=== PATIENT | male | born 1965 | race Caucasian/White ===

== ENCOUNTER 2017-04-05 11:09 | Observation (INO) ==
[2017-04-05] MEDS ORDERED: NS 1,000 ML IV ONE (11:24)
[2017-04-05] MEDS ORDERED: ATIVAN IV ONE (11:35)
[2017-04-05 11:49] LABS: BASO% 0.2 % (0.0-0.8); HEMATOCRIT 40.8 % (42.0-52.0); HEMOGLOBIN 13.9 g/dL (14.0-18.0); IMM GRAN# 0.02 X1000 (0.0-0.04); IMM GRAN% 0.2 % (0.0-0.5); LYMPH# 1.48 X1000 (1.2-3.4); LYMPH% 16.8 % (20.5-51.1); MANUAL DIFF NEEDED? NO; MCH 29.4 PG (27-31); MCHC 34.1 g/dL (33-37); MCV 86.3 FL (81-99); MONO# 0.74 X1000 (0.11-0.59); MONO% 8.4 % (1.7-9.3); MPV 11.9 FL (7.4-10.4); NEUT% 74.4 % (42.2-75.2); PLT 235 X1000 (130-400); RBC 4.73 XMIL (4.7-6.1)
[2017-04-05 11:59] LABS: ALBUMIN 3.6 g/dL (3.5-5.0); ALKALINE PHOSPHATASE 85 U/L (32-122); BUN 11 mg/dL (8-22); CALCIUM 9.5 mg/dL (8.8-10.2); CK PROFILE 44 U/L (24-204); GOT 30 U/L (10-34); GPT 26 U/L (10-44); MAGNESIUM 1.7 mg/dL (1.5-2.7); TCO2 25 mmol/L (25-35); TOTAL BILIRUBIN 0.75 mg/dL (0.20-1.00); TOTAL PROTEIN 7.2 g/dL (6.3-8.3)
[2017-04-05 12:04] LABS: CHLORIDE 92 mmol/L (98-107); POTASSIUM 3.7 mmol/L (3.5-5.1); SODIUM 132 mmol/L (136-145)
[2017-04-05 12:17] LABS: AGAP 15; COSMO 264; FREE T4 7.54 ng/dL (0.93-1.70)
--- NOTE | 2017-04-05 13:39 | PROVIDER DOCUMENTATION ---
This chart was entered by Abisai Michelle Scribe, acting as scribe for Lindsay Vasques MD. HPI-General Adult - General Chief Complaint: Weakness Stated Complaint: weakness Time Seen by Provider: 04/05/17 11:24 Source: patient Allergies/Adverse Reactions: Patient Allergies Allergy/AdvReac Type Severity Reaction Status Date / Time latex Allergy ITCHING Verified 04/05/17 11:37 Home Medications: Home Medication List Medication Instructions Recorded Confirmed Last Taken Type Baclofen 10 mg PO DAILY PRN PRN 03/24/17 04/05/17 04/01/17 History Tramadol HCl 50 mg PO PRN PRN 03/24/17 04/05/17 04/01/17 History Levothyroxine [Synthroid] 100 microgm PO DAILY 04/05/17 04/05/17 04/05/17 08:00 History Metoprolol Succinate E.r. [Toprol 25 mg PO DAILY 04/05/17 04/05/17 04/05/17 08: 00 History Xl] - History of Present Illness -Gen Adult Nature of Presenting Problems: PT STATED "I WAS DRIVING TO MY MOM'S HOUSE AND STARTED TREMBLING AND FEELING PANICKY"PT RECENTLY HAD THYROID SURGERY WITHOUT COMPLICATIONS. Location of Pain/Injury: reports: none Pain Radiation: reports: no radiation Quality of Pain: reports: none Severity: reports: mild Onset/Duration: reports: just prior to arrival Timing: reports: still present Context/Activities at Onset: reports: none Modifying Factors: improves with: nothing Associated Symptoms: reports: anxiety. denies: fever/chills, shortness of breath, vomiting Similar Symptoms Previously?: No Recently seen or treated by another doctor?: No Review of Systems - Adult - REVIEW OF SYSTEMS - ADULT Constitutional: denies: chills, fever, night sweats Ears, Nose, Mouth & Throat: denies: nose pain, throat pain, throat swelling Cardiovascular: denies: chest pain, irregular heart rate, palpitations Respiratory: denies: cough, shortness of breath, wheezing Gastrointestinal: denies: abdominal pain, diarrhea, nausea, vomiting Psychiatric: reports: anxiety, panic attacks. denies: anti-depressant use, suicidal thoughts All Other Systems: Reviewed and Negative Past History - Adult - PAST MEDICAL HISTORY-ADULT Review of Records: reports: Nursing Assessment Review, Medications Reviewed Cardiovascular: reports: HTN - PRIOR SURGERIES/PROCEDURES Surgical/Procedure History: reports: orthopedic (extremity) - IMMUNIZATION STATUS Childhood Immunizations: UTD - FAMILY HISTORY Family History: reviewed, not pertinent - SOCIAL HISTORY Smoking: denies Substance Use: none/never Alcohol Use Frequency: every day Number of drinks per typical drinking period:: 2 drinks Living Situation: family Physical Exam-General - PHYSICAL EXAM-ADULT Initial Vital Signs Reviewed: Yes - CONSTITUTIONAL General Appearance: appears well, alert, no apparent distress - EYES Eyes: PERRL/EOMI, pink conjunctivae - HEAD, EARS, NOSE, MOUTH & THROAT HENMT: normocephalic/atraumatic, moist mucous membranes, normal ENT inspection, TMs normal, pharynx normal - NECK Neck: non-tender, full range of motion, supple, other (HEALING SURGICAL SCAR) - RESPIRATORY Respiratory: chest non-tender, lungs clear, normal breath sounds, no pleuratic chest pain, no respiratory distress, no accessory muscle use - CARDIOVASCULAR Cardiovascular: normal peripheral pulses, regular rate, rhythm, no edema, no gallop, no JVD, no murmur - GASTROINTESTINAL (ABDOMEN) Abdominal Exam: normal bowel sounds, non tender, soft, no organomegaly, no pulsatile mass - MUSCULOSKELETAL Extremity: normal range of motion, normal inspection, normal capillary refill - SKIN Integumentary: normal color, normal turgor, warm/dry - PSYCHIATRIC Psych/Mental Status: normal mood/affect, normal thought content, normal thought process, oriented x 3 Progress - PLAN OF CARE/RESULTS Progress/Plan/Lab Results: Vital Signs - 8 hr 04/05/17 11:13 Temperature 98.5 F Pulse Rate 96 H Respiratory Rate 24 Blood Pressure 138/98 O2 Sat by Pulse Oximetry 95 Orders Category Date Time Status Cardiac Monitoring DIRECTED Care 04/05/17 11:24 Active Saline Loc NOW Care 04/05/17 11:24 Active CHEST-PORTABLE [RAD] Stat Exams 04/05/17 11:24 Taken CBC WITH ELECTRONIC DIFF [HEME] Stat Lab 04/05/17 10:00 Results CK PROFILE [SP CHEM] Stat Lab 04/05/17 10:00 Received COMPREHENSIVE METABOLIC PANEL [CHEM] Stat Lab 04/05/17 10:00 Received FREE T4 Stat Lab 04/05/17 10:00 Received MAGNESIUM [CHEM] Stat Lab 04/05/17 10:00 Received TROPONIN T Stat Lab 04/05/17 10:00 Received TSH Stat Lab 04/05/17 10:00 Received 0.9% Sodium Chloride Inj [Ns] 1,000 ml Med 04/05/17 11:24 Active IV 999 mls/hr Lorazepam [Ativan] Med 04/05/17 11:35 Discontinued 1 mg IV NOW ONE EKG [EKG] Stat Ther 04/05/17 11:24 Ordered Result Diagrams: 04/05/17 10:00 04/05/17 10:00 - CONSULTS/PCP/HOSPITALIST Notification Time Discussed: 13:35 Reason/Comments: Admit to Dr. Birch Consult Disposition: Admit Departure - Departure Time of Disposition Decision: 13:36 DIAGNOSIS: Hyperthyroidism, Anxiety, Tachycardia Post-operative complication Qualifiers: Surgical complication system/body Area: endocrine system Surgical complication type: unspecified Procedure type: endocrine system Qualified Code(s): E89.89 - Other postprocedural endocrine and metabolic complications and disorders Disposition: ADMITTED INPATIENT 09 Certified Medical Emergency: Emergent Condition: Stable Referrals and Follow-Ups: Neo Joshi [Primary Care Provider] - - Critical Care Note This patient required my direct & personal management of CC.: No This chart was documented by the indicated scribe, (Abisai Michelle Scribe) and accurately reflects the services I performed and decisions made by me, Lindsay Vasques MD, as attested by the provider's signature.
[2017-04-05] MEDS ORDERED: LIBRIUM PO SCH (13:45)
[2017-04-05] MEDS: ZOSYN 3.375 GM/NS 3.375 GM/50 ML IVPB IV SCH ×2 (14:27→21:28)
[2017-04-05] MEDS ORDERED: ZOFRAN IV PRN (14:40)
--- NOTE | 2017-04-05 14:41 | HISTORY AND PHYSICAL ---
PRIMARY CARE PHYSICIAN: . CHIEF COMPLAINT: Chills and suspected fever. HISTORY OF PRESENT ILLNESS: This is a 51-year-old male with past medical history of hypertension and recent thyroidectomy who presented to the emergency department complaining of feeling general malaise and reported that since last night he was having profuse sweating, general malaise and this morning also was feeling very tired. He did not check temperature. He denies any pain localized in the neck in the surgical area. As we mentioned before, patient had a thyroidectomy [address] Gonzales because of a thyroid nodule and goiter. Since then, he was feeling fine until yesterday. He denies any cough or flu-like symptoms. He denies any abdominal pain. He denies any diarrhea. He denies any burning upon urination. Patient upon ER evaluation, was found to have normal laboratory data except elevated thyroid hormones. Patient was given levothyroxine after the surgery. The patient is going to be admitted for further evaluation and treatment. PAST MEDICAL HISTORY: Hypertension. PAST SURGICAL HISTORY: Recent thyroid lobectomy in 1 week ago. SOCIAL HISTORY: Patient reports drinking alcohol socially, not ever single day. Reports smoking tobacco since at least his early 20s, 1 pack per day. Denies using any illicit drugs. REVIEW OF SYSTEMS: Eleven systems were reviewed and no symptoms except related to HPI. PHYSICAL EXAMINATION: VITAL SIGNS: Temperature 98.5 degrees, heart rate 96, respiratory rate 24, blood pressure 138/98 O2 saturation 95% on room air. GENERAL: This is a 51-year-old male, lying in bed, in no acute distress. HEENT: Head is normocephalic, atraumatic. Anicteric sclerae and pale conjunctivae. Mucous membranes moist. NECK: Small incision on the central trachea. Does not feel any fluctuance there. Very mildly tender. Neck supple. No JVD noted. No carotid bruits. CARDIOVASCULAR: S1, S2 heard. No murmurs, gallops, or rubs. Regular rate and rhythm. RESPIRATORY: Clear bilaterally to auscultation. No work of breathing or using accessory muscles. ABDOMEN: Soft, nontender to palpation. Bowel sounds present. No organomegaly. EXTREMITIES: No clubbing, cyanosis, or edema. Peripheral pulses present in both legs. NEUROLOGICAL: Patient alert and oriented x3. Able to move 4 extremities. Cranial nerves II through XII grossly normal. LABORATORY DATA: CBC unremarkable. BMP as well with mild hyponatremia 132 and free T4 7.54 with TSH 0.01. ASSESSMENT: 1. General malaise. 2. Hyperthyroidism. 3. Suspected surgical wound infected. PLAN: The patient is being admitted to hospital for further evaluation and treatment. It looks like he is having an infection but do not know exactly where it is coming from. At this point, we are going to do a CT of the chest, abdomen, and pelvis to see if there is any source of infection ruled out. We will also check a CT of the neck for suspected infection in the surgical wound although on the physical exam there did not seem to be any fluctuance. Will put this patient on Zosyn IV just in case there is an infection we are missing. We are going to stop of course levothyroxine because of low TSH. We will continue with the beta-blockers. Further recommendations to follow according to the clinical situation. cc: Nolberto Osei MD
[2017-04-05] MEDS: ATIVAN IV PRN ×2 (15:41→21:29)
[2017-04-05] MEDS: NS 1,000 ML IV SCH (15:42)
[2017-04-05] MEDS: LOVENOX SUBQ SCH (15:42)
[2017-04-05] MEDS: LIORESAL PO SCH (16:36)
--- NOTE | 2017-04-05 17:15 | Diag Imaging Result Document ---
PROCEDURE NAME: NECK W/CONTRAST - 04/05/2017 CT OF THE NECK WITH CONTRAST: FINDINGS: Exam performed with intravenous contrast. A dose reduction protocol was used. No comparison CT neck is available. There are postsurgical changes of partial right thyroidectomy which, by history, is recent. There are streak artifacts from the clavicles which limit detail at the anterior thyroid region. There is apparent superficial and deep subcutaneous edema anterior to the thyroid, most prominent on the right. There are a couple of tiny gas bubbles within the edema in the deep subcutaneous tissues medially on the right, approximately 1.5 cm anterior to the anterior medial margin of the remaining right thyroid lobe. The possibility of ill-defined abscess in this area cannot be excluded. There are multiple small bilateral cervical lymph nodes. There are no necrotic appearing lymph nodes identified. There is no substantial narrowing of the airway identified. IMPRESSION: 1. Postsurgical changes of partial right thyroidectomy. 2. Streak artifacts from the bilateral clavicles which limit detail at the anterior thyroid region. 3. Superficial and deep subcutaneous edema anterior to the thyroid, most prominent on the right. A couple of apparent tiny gas bubbles within the deep subcutaneous edema medially on the right. The possibility of early abscess formation in this location cannot be excluded.
--- NOTE | 2017-04-05 17:37 | Diag Imaging Result Document ---
PROCEDURE NAME: CHEST-PORTABLE - 04/05/2017 PORTABLE CHEST: COMPARISON: 03/24/2017. FINDINGS: Heart size appears within normal limits. There are apparent COPD changes with prominence of central markings, similar to the previous exam. There is no dense consolidation, pleural effusion, or pneumothorax identified. IMPRESSION: COPD. No acute changes.
--- NOTE | 2017-04-05 20:59 | Diag Imaging Result Document ---
PROCEDURE NAME: THORAX/ABDOMEN/PELVIS - 04/05/2017 CT THORAX ABDOMEN PELVIS WITH CONTRAST: FINDINGS: Exam performed with intravenous contrast. A dose reduction protocol was used. No comparison exam. Heart size appears upper normal. There are mild COPD changes. The lungs appear essentially clear except for atelectasis at the posterior right base. There is a tiny right pleural effusion. There is no consolidation or pneumothorax identified. There are mildly prominent mediastinal lymph nodes. There is no other evidence of mediastinal inflammation. There is no mediastinal abscess seen. There are no substantial abnormalities of the liver, spleen, adrenal glands, or pancreas identified. There are no calcified gallstones or pericholecystic inflammation identified. There is a 1.7 cm low-density lesion suggestive of cyst at the lateral mid to lower right kidney. The bilateral kidneys otherwise enhance homogeneously. There is no hydronephrosis. There are nonspecific small retroperitoneal lymph nodes. There are no substantially enlarged retroperitoneal or mesenteric lymph nodes identified. There are bilateral L5 pars interarticularis defects noted. There are lumbar spine degenerative changes also noted. There is no evidence of bowel obstruction. There is a small fat-containing periumbilical hernia, but there is no bowel-containing hernia seen. The appendix is unremarkable. There is no substantial bowel wall thickening identified. There is no free air, free fluid , or abscess identified in the abdomen or pelvis. IMPRESSION: 1. Mild COPD changes. Mild atelectasis at posterior right lung base. Tiny right pleural effusion. 2. Mild mediastinal adenopathy. No other evidence of mediastinal inflammation. 3. Apparent small right renal cyst. Nonspecific small retroperitoneal lymph nodes. 4. Small fat-containing paraumbilical hernia. No bowel-containing hernia. No bowel obstruction. 5. No abscess. No free air. 6. Bilateral L5 pars interarticularis defects and lumbar spine degenerative changes noted. [facility]
[2017-04-06] MEDS: ZOSYN 3.375 GM/NS 3.375 GM/50 ML IVPB IV SCH ×4 (01:57→20:38)
[2017-04-06] MEDS: NS 1,000 ML IV SCH ×2 (01:57→14:56)
[2017-04-06] MEDS: ATIVAN IV PRN ×3 (01:58→19:30)
[2017-04-06 07:00] LABS: MANUAL DIFF NEEDED? NO
[2017-04-06 07:13] LABS: BASO% 0.1 % (0.0-0.8); HEMATOCRIT 35.3 % (42.0-52.0); LYMPH# 1.69 X1000 (1.2-3.4); LYMPH% 23.5 % (20.5-51.1); MCH 29.3 PG (27-31); MCV 86.3 FL (81-99); MONO# 0.54 X1000 (0.11-0.59); MONO% 7.5 % (1.7-9.3); MPV 11.8 FL (7.4-10.4); NEUT% 68.9 % (42.2-75.2); PLT 180 X1000 (130-400); RBC 4.09 XMIL (4.7-6.1)
[2017-04-06 07:25] LABS: AGAP 10; BUN 7 mg/dL (8-22); CALCIUM 8.5 mg/dL (8.8-10.2); CHLORIDE 104 mmol/L (98-107); COSMO 276; POTASSIUM 3.7 mmol/L (3.5-5.1); SODIUM 139 mmol/L (136-145); TCO2 25 mmol/L (25-35)
--- NOTE | 2017-04-06 07:55 | EKG Report ---
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 Rate : 092 BPM Atrial Rate : 092 BPM P-R Int : 116 ms QRS Dur : 092 ms QT Int : 368 ms P-R-T Axes : 020 062 057 degrees QTc Int : 455 ms Normal sinus rhythm. Normal ECG When compared with ECG of 05-APR-2017 11:17, (Unconfirmed) No significant change was found Confirmed by Harjinder Eid MD ([id number]) on 04/06/2017 4:03:12 PM
--- NOTE | 2017-04-06 10:30 | Diag Imaging Result Document ---
PROCEDURE NAME: US ABDOMEN-COMPLETE - 04/06/2017 ULTRASOUND ABDOMEN, COMPLETE: COMPARISON: CT from 04/05/2017. FINDINGS: The patient is not n.p.o. The liver, gallbladder, spleen, pancreas, and both kidneys are normal. The common bile duct measures 4 mm. Aorta, IVC, and main portal vein are patent. The gallbladder is partially collapsed. IMPRESSION: No obvious abnormality.
[2017-04-06] MEDS: PRILOSEC PO SCH (11:02)
[2017-04-06] MEDS: TOPROL XL PO SCH (11:02)
[2017-04-06] MEDS: LIORESAL PO SCH ×3 (11:02→18:52)
--- NOTE | 2017-04-06 14:21 | PROGRESS NOTE ---
DATE: 04/06/2017 SUBJECTIVE: Patient reports feeling a little bit better. No fever or chills reported. OBJECTIVE: Vital Signs: Temperature 98.9 degrees, heart rate 87, respiratory 19, blood pressure 145/89, O2 saturation 96% on room air. General Examination: This is a 51-year-old male, lying in bed, in no acute distress. HEENT: Head is normocephalic, atraumatic. Anicteric sclerae. Pale conjunctivae. Mucous membranes moist. Neck: Supple. There is a small incision in the central trachea. There is no there. Mildly tender. Neck: Supple. No JVD noted. Cardiovascular: S1, S2 heard. No murmurs, gallops, or rubs. Regular rate and rhythm. Respiratory: Clear bilaterally to auscultation. No work of breathing or using accessory muscles. Abdomen: Soft, nontender to palpation. Bowel sounds present. No organomegaly. Extremities: No clubbing, cyanosis, or edema. Peripheral pulses present in both legs. Neurological: Patient is alert and oriented x3. Moves 4 extremities. Cranial nerves 2 through 12 grossly normal. LABORATORY DATA: The CBC is unremarkable as well as BMP. ASSESSMENT: Hyperthyroidism. Suspected infection in the partial right thyroidectomy. PLAN: The patient was admitted to hospital for sensation of fever and chills during the last couple of days. Also, the patient was feeling more tired. The CT of the neck showed superficial and deep subcutaneous edema prominently on the right side. There are some tiny bubbles could suggest early abscess. In any case, we are going to continue with antibiotics and we will do an ultrasound of the soft tissues to check if there is truly any abscess in the neck. cc: Nolberto Osei MD
[2017-04-06] MEDS: LOVENOX SUBQ SCH (15:03)
--- NOTE | 2017-04-06 17:48 | Diag Imaging Result Document ---
PROCEDURE NAME: US SOFT TISSUE HEAD NECK - 04/06/2017 THYROID ULTRASOUND: FINDINGS: The thyroid gland is enlarged and heterogeneous. The right lobe is 4.9 x 3.1 x 2.2 cm. The left is 6.6 x 3.5 x 3.1 cm. It is similar in appearance to the previous examination of 01/08/2017. Color Doppler at that time demonstrated marked hyperemia which is less apparent on today's study. No fluid collections are identified. IMPRESSION: 1. Possibility of thyroiditis cannot be excluded. 2. Otherwise, the appearance is consistent with multinodular goiter or diffuse thyroiditis.
--- NOTE | 2017-04-06 18:11 | ECHO REPORT ---
ORDER DATE: 04/05/2017 ECHOCARDIOGRAM: MEASUREMENTS: Left ventricular end-diastolic diameter 5.5, posterior wall thickness 1.0, septal thickness 1.1, left atrium 3.9, aortic root 3.4. SUMMARY: 1. Technically difficult study due to limited acoustic window quality. 2. Aortic, mitral and tricuspid valves are without gross structural abnormality while pulmonic valve was not well demonstrated. There is trace mitral regurgitation and trace tricuspid regurgitation. The aortic root is normal in size. 3. Normal left ventricular dimensions suggested. Estimated left ventricular ejection fraction appears to be approximately 55%. No regional wall motion has can be appreciated. Left atrium, right atrium and right ventricle. Four normal size with preserved right ventricular systolic function. 4. No pericardial effusion. 5. Appearance of inferior vena cava suggests normal central venous pressure. CONCLUSIONS: 1. Technically difficult study. 2. No significant valvular abnormality evident. 3. Estimated left ventricular ejection fraction 55%. cc: MD Nolberto Phillips MD
[2017-04-06] MEDS ORDERED: DESYREL PO SCH (21:00)
[2017-04-07] MEDS: ZOSYN 3.375 GM/NS 3.375 GM/50 ML IVPB IV SCH ×2 (05:13→08:24)
[2017-04-07] MEDS: ATIVAN IV PRN (05:13)
[2017-04-07] MEDS: NS 1,000 ML IV SCH ×4 (05:14→12:43)
[2017-04-07 06:33] LABS: MANUAL DIFF NEEDED? NO
[2017-04-07 06:58] LABS: BASO% 0.1 % (0.0-0.8); HEMATOCRIT 36.7 % (42.0-52.0); HEMOGLOBIN 12.2 g/dL (14.0-18.0); LYMPH% 22.2 % (20.5-51.1); MCH 28.8 PG (27-31); MCHC 33.2 g/dL (33-37); MCV 86.6 FL (81-99); MONO# 0.47 X1000 (0.11-0.59); MONO% 6.5 % (1.7-9.3); MPV 12.2 FL (7.4-10.4); NEUT% 71.2 % (42.2-75.2); PLT 151 X1000 (130-400); RBC 4.24 XMIL (4.7-6.1)
[2017-04-07 07:05] LABS: AGAP 14; BUN 8 mg/dL (8-22); CALCIUM 9.1 mg/dL (8.8-10.2); CHLORIDE 106 mmol/L (98-107); COSMO 281; POTASSIUM 3.9 mmol/L (3.5-5.1); SODIUM 142 mmol/L (136-145); TCO2 22 mmol/L (25-35)
[2017-04-07] MEDS: PRILOSEC PO SCH (08:24)
[2017-04-07] MEDS: TOPROL XL PO SCH (08:25)
[2017-04-07] MEDS: LIORESAL PO SCH (08:25)
[2017-04-07 08:53] VITALS: BP 141/75
[2017-04-07] MEDS ORDERED: ATIVAN PO SCH (21:00)
[2017-04-07] MEDS ORDERED: INDERAL PO SCH (21:00)
--- NOTE | 2017-04-07 22:14 | DISCHARGE SUMMARY ---
ADMISSION DATE: 04/05/2017 DISCHARGE DATE: 04/07/2017 DISPOSITION: Home. FOLLOWUP: 1. Dr. Gonzales. 2. Dr. Horne. 3. Dr. Rodríguez (food product inspector in [place]). CONSULTATION DURING THIS ADMISSION: None. INVASIVE PROCEDURES DONE THIS ADMISSION: None. IMAGING STUDIES OF SIGNIFICANCE: 1. A CT scan of chest, abdomen and pelvis was done which shows mild COPD changes , tiny right pleural effusion, mild mediastinal adenopathy. No abscess. 2. A CT scan of the neck was done which showed postsurgical changes of partial right thyroidectomy and superficial deep subcutaneous erythema. 3. Head and neck ultrasound. Possibility of thyroiditis cannot be excluded. ASSESSMENT AT ADMISSION: 1. General malaise. 2. Hypothyroidism. 3. Surgical wound infection. DIAGNOSES AT TIME OF DISCHARGE: 1. Iatrogenic hyperthyroidism from too much thyroid supplementation. 2. Suspected thyroiditis. 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 3. Suspected mild chronic obstructive pulmonary disease on CT image. PRESENTING COMPLAINT: Chills, sweats, shaking. HISTORY OF PRESENTING COMPLAINT: Mr. Huff is 51 year old who has been diagnosed with a thyroid node. He recently had a right partial thyroidectomy. He went home on 100 mcg of levothyroxine. While at home he started having profuse sweats, anxiety and tremors. He came in and was found to have free T4 level of 7.54 with TSH level of 0.01 all consistent with hyperthyroidism. The patient was admitted for further medical care. HOSPITAL COURSE: Patient did pretty well once the thyroid supplementation was taken off. The shaking and tremors subsided today. He refers to be doing a whole lot better. The surgeon, Dr. Gonzales, came to check on the neck and he does not think there is any infection. We reviewed patient's pathology which is consistent with chronic thyroiditis suspicious for Annemarie. I did order TPO to see if he is antibiotic positive. Today he refers to feel a lot better. His vitals are stable. Blood pressure is 141/75, pulse of 77, respirations 15, temperature is 98.2 degrees. Physical exam is completely unremarkable. The patient is therefore going to be discharged in very stable condition. He is advised to follow up with Dr. Rodríguez in about a week with follow-up repeat TFTs. He is also advised to stop taking any thyroid supplement medications until he follows up with Dr. Rodríguez. For now, I will treat his blood pressure with lisinopril and use propranolol for the peripheral manifestations of hyperthyroidism. We will give him low dose Xanax for anxiety disorder and the hyperadrenergic state from excess thyroid medications. Patient is also advised to follow up with Dr. Gonzales and also Dr. Horne, his primary care doctor. All the discharge instructions have been discussed with him. He was advised that he stay off work for at least about a week while he is going through this hyperadrenergic state. TIME SPENT FOR DISCHARGE: 36 minutes. cc: James Garcia MD MTDD
[2017-04-08] MEDS ORDERED: SYNTHROID PO SCH (07:00)
[2017-04-08] MEDS ORDERED: PRINIVIL PO SCH (09:00)
== END 2017-04-07 15:36 | disposition home or self-care (01) ==
LOC: ED 11:09 → SUATTDRO 13:57 → INTOOBSV 13:57 → 3N 13:57
PROVIDERS: ATTEND Internal Medicine